=== PATIENT | male | born 1995 | race Caucasian/White ===

== ENCOUNTER 2017-09-04 13:27 | Emergency (ER) | payer OTHER ==
[~2017-09-04] VITALS: Ht 172.7 cm; Wt 61.2 kg
[2017-09-04] MEDS ORDERED: IBUP800 PO (14:23)
[2017-09-04] MEDS ORDERED: NO ROUTINE MEDS (14:29)
== END 2017-09-04 14:25 | disposition home or self-care (01) ==
LOC: ER 13:27
DX: S80.11XA Contusion of right lower leg, initial encounter (principal); F17.210 Nicotine dependence, cigarettes, uncomplicated; Z88.5 Allergy status to narcotic agent; W01.0XXA Fall on same level from slipping, tripping and stumbling without subsequent striking against object, initial encounter; Y93.01 Activity, walking, marching and hiking
CPT/HCPCS: 73590; 99283

== ENCOUNTER 2018-08-22 09:08 | Emergency (ER) | payer SELFPAY ==
[~2018-08-22] VITALS: Ht 172.7 cm; Wt 59.0 kg
[~2018-08-22 09:08] MED LIST: IBUP800 PO; NO ROUTINE MEDS
[2018-08-22] MEDS ORDERED: IBUP600 PO (10:11)
== END 2018-08-22 10:38 | disposition home or self-care (01) ==
LOC: ER 09:08
DX: S90.31XA Contusion of right foot, initial encounter (principal); X58.XXXA Exposure to other specified factors, initial encounter; Z88.5 Allergy status to narcotic agent; F17.210 Nicotine dependence, cigarettes, uncomplicated
CPT/HCPCS: 73630; 99283-25